=== PATIENT | male | born 1960 | race Caucasian/White ===

== ENCOUNTER → 2018-06-03 | Outpatient (CLI) | payer OTHER ==
--- NOTE | 2018-06-03 17:13 | RAD ---
CT study of the abdomen without contrast Clinical indications: Chronic renal disease, stage III. Adrenal gland evaluation. COMPARISON: July 07, 2008. TECHNIQUE: Noncontrast helical CT scanning of the abdomen from the hemidiaphragms to the iliac crests was performed. Without IV or GI contrast material, the sensitivity to detect organ pathology or GI tract pathology is decreased. PQRS compliance Statement One or more of the following individualized dose reduction techniques were utilized for this study: 1. Automated exposure control 2. Adjustment of the mA and/or kV according to patient size 3. Use of iterative reconstruction technique FINDINGS: The liver and spleen and pancreas and gallbladder are unremarkable. No extrahepatic biliary ductal dilatation is seen. No adrenal mass is evident. No renal mass is seen on either side on this noncontrast study. No hydronephrosis or proximal hydroureter is evident. No urinary tract stone is seen. No focal aneurysmal dilatation of the abdominal aorta is seen. No enlarged abdominal lymphadenopathy is evident. No obstructive bowel pattern is evident. No free air or free fluid or mesenteric edema is evident. No lung base consolidation is seen. No lytic process is seen. IMPRESSION: No acute abnormality of the abdomen. No hydronephrosis or proximal hydroureter or urinary tract stone is evident. No renal mass or perinephric fluid collection is seen on either side. No adrenal mass. Electronically signed by: Celio Herrera MD (06/03/2018 5:09 PM) [id number]
== END | disposition home or self-care (01) ==
LOC: CT 08:53
PROVIDERS: ATTEND Internal Medicine Nephrology
DX: I12.9 Hypertensive chronic kidney disease with stage 1 through stage 4 chronic kidney disease, or unspecified chronic kidney disease (principal); N18.3 Chronic kidney disease, stage 3 (moderate)
CPT/HCPCS: 74150

== ENCOUNTER → 2021-11-21 | Outpatient (CLI) | payer OTHER ==
--- NOTE | 2021-11-21 18:50 | RAD ---
EXAM: XR KNEE 3 VIEWS_RT 11/21/2021 6:00 PM CLINICAL INDICATION: Pain in right knee, felt a pop. Recent cortisone injection. COMPARISON: Right knee radiograph 11/09/2021 TECHNIQUE: AP, oblique, and lateral views of the right knee FINDINGS: No acute fracture. There are surgical changes of ACL reconstruction. There is tricompartme ntal joint space narrowing, moderate in the medial and lateral compartment. There are prominent trico mpartmental osteophytes, greatest in the patellofemoral and lateral compartments. Small joint effusio n. IMPRESSION: 1. No acute osseous abnormality. 2. Unchanged moderate to severe degenerative joint disease. Electronically signed by: Umu Mcconnell MD (11/21/2021 6:48 PM) [facility]
== END ==
LOC: PMG 17:45
PROVIDERS: ATTEND Nurse Practitioner Family
DX: M17.11 Unilateral primary osteoarthritis, right knee (principal); M25.761 Osteophyte, right knee; M25.461 Effusion, right knee
CPT/HCPCS: 73562